=== PATIENT | female | born 1965 | race Caucasian/White ===

== ENCOUNTER 2020-09-10 08:32 | Emergency (ER) | payer MEDICARE, MEDICAID ==
[~2020-09-10] VITALS: Ht 157.5 cm; Wt 104.5 kg
[2020-09-10] MEDS ORDERED: proparacaine 0.5% ophthalmic drops 15ml EACHEYE ONE (09:15)
--- NOTE | 2020-09-10 09:30 | NUR ---
PATIENT YELLING OUT AND LOUDLY GROANING FROM HER EYE PAIN AND BURNING PATIENT STATES SHE WAS IN A CASINO FOR 15 MINUTES AND HER EYES STARTED BURNING
[2020-09-10] MEDS ORDERED: LORazepam 2 mg/ml vial IM ONE (10:20)
[2020-09-10] MEDS ORDERED: naphazoline/pheniramine eye 1 DROP BOTTLE EACHEYE STA (10:35)
[2020-09-10] MEDS ORDERED: ketorolac tromethamine 0.5% ophthalmic drops EACHEYE ONE (11:05)
[2020-09-10 11:37] VITALS: BP 141/81
--- NOTE | 2020-09-10 11:42 | NUR ---
PATIENT IS AMBULATING TO DO THE VISUAL ACUITY WITH TECH GONZALO
--- NOTE | 2020-09-10 11:43 | NUR ---
was asked by nurse to perform visual acuity test on pt, pt refused as she stated that she could not open her eyes and walk to perform task. I notified nurse and MIRIAM Gaffney in regards to this.
--- NOTE | 2020-09-10 11:43 | NUR ---
PER GENARO SÁNCHEZ PATIENT REFUSED TO DO THE VISUAL ACUITY TEST AND REFUSED TO GET OOB
--- NOTE | 2020-09-10 11:52 | NUR ---
explained in detail how to take eye drops with patient and daughter. writtent by hand on discharge paperwork. litzy mejía gave her daughter Noris both the proparacaine eye drops: 2 drops each eye q 2 hours as needed for pain for 24 hours and ketoralac eye drops: one drop each eye twice daily for 2 days patient will purchase a lubricating eye drop such as systane patient and daughter verbalized discharge plan. patient will follow up with her PMD at [facility].
--- NOTE | 2020-09-10 11:57 | NUR ---
patient will follow up with her eye doc Dr Todd khanna and verbalized this plan
== END 2020-09-10 12:02 | disposition home or self-care (01) ==
LOC: ER 08:32
DX: H57.13 Ocular pain, bilateral (principal); F31.9 Bipolar disorder, unspecified; F17.200 Nicotine dependence, unspecified, uncomplicated; Z98.51 Tubal ligation status; Z98.890 Other specified postprocedural states; Z88.0 Allergy status to penicillin; Z88.2 Allergy status to sulfonamides
CPT/HCPCS: 96372; 99284; J2060